=== PATIENT | female | born 1940 | race Caucasian/White ===

== ENCOUNTER → 2023-09-06 10:26 | Outpatient (REF) | payer OTHER, SELFPAY | LOC: RAD 10:26 | PROVIDERS: ATTENDING PHYSICIAN Internal Medicine | DX: R68.81 Early satiety (principal) | CPT/HCPCS: 74246 ==

== ENCOUNTER → 2023-12-27 13:58 | Outpatient (REF) | payer OTHER, SELFPAY | LOC: HWRAD 13:58 | PROVIDERS: ATTENDING PHYSICIAN Surgery; FAMILY PHYSICIAN Internal Medicine | DX: K43.9 Ventral hernia without obstruction or gangrene (principal) | CPT/HCPCS: 74177; Q9967 ==

== ENCOUNTER 2024-01-04 20:28 | Inpatient (IN) | payer OTHER, SELFPAY ==
[2024-01-04 17:08] VITALS: BP 140/79
--- NOTE | 2024-01-04 18:41 | ED.GENMED ---
History of Present Illness
General
Chief Complaint: Breathing Problem
Source: patient and family
Exam Limitations: none
Time Seen by Provider: 01/04/24 18:18
Nursing documentation reviewed up to this point in time: agreed with
History of Present Illness
History of Present Illness:
Patient with history of COPD, presents to ED secondary to worsening shortness of breath with intermittent cough over the past 1 week. Patient at the recommendation of her primary care physician performed home test for COVID-19 4 days ago, which was
positive. Patient was started on Paxlovid with ongoing symptoms 2 days ago. Today, when she checked her pulse ox at home with shortness of breath, it was noted to be in low 80s. At that time, after discussion with her primary care physician,
decision was made to have the patient evaluated in ED. Patient also reports decreased appetite. Denies vomiting or diarrhea. Denies sick contact. Denies recent travel. Denies dizziness. Denies headache.
Past History
Past History
ED Past Medical History: COPD, GERD, HTN and Other (TIA, )
ED Past Surgical History: Appendectomy, (X 3), Orthopedic (L3-L5 back surgery right and left side), Urological (Bladder lift) and Other (Mastroidectomy)
Social History
Tobacco: Non-smoker
Alcohol: None
Personal:
Living: with family
Employment: Employed
Review of Systems
Review of Systems
Allergies reviewed?: Yes
All Other Systems: ROS reviewed and negative except as documented in HPI and ROS
Constitutional: Reports no symptoms; Denies fever or chills
EENT: Reports no symptoms
Respiratory: Reports cough and trouble breathing
Cardiac: Reports no symptoms
ABD/GI: Reports no symptoms
Musculoskeletal: Reports no symptoms
Skin: Reports no symptoms
Neurological: Reports no symptoms
Phy Exam
Physical Exam
Physical Exam:
Physical Exam
General: mild distress, not acutely ill. afebrile
Head: nc/at. eomi
Neck: supple. no meningeal signs.
Heart: s1/s2 regular rate and rhythm, no murmur. equal radial pulses.
Lungs: mild respiratory distress. diminished breath sounds bilaterally with rhonchi
Abdomen: normal bowel sounds. not tender.
Neuro: alert and oriented. no focal neurological deficits
Skin: no rash
Psychiatric: well kept. interactive and cooperative
Extremities: no edema. no calf tenderness.
Scores
Heart Failure Risk
Heart Failure Risk Score: Not Applicable
Course
Orders/Labs/Results
Orders:
Orders
01/04/24 Dinner
Regular
01/04/24 18:35
CR Chest Portable - 1 View Urgent
Comment:
Reason For Exam: sob/hypoxia
Reason Study Needs to be Portable: Patient Unstable
01/04/24 18:38
0.9% Sodium Chloride 500 ml [Nss] 500 ml IV BOLUS
Dexamethasone Sod Phosphate [Decadron] 6 mg IV NOW STA
01/04/24 19:12
COVID-19 Antigen Urgent
Source: Nasal Swab
Complete Blood Count/With Diff Urgent
Comprehensive Metabolic Panel Urgent
Magnesium Urgent
01/04/24 19:54
Albuterol [ProAIR HFA INHALER] 2 puff INH R NOW STA
01/04/24 20:14
Admit/Transfer Patient As Directed
Co-Sign Provider:
Level of Care: Inpatient admission
Assign to:: Medical/Surgical
Physician / Group: james
Diagnosis: covid,copd exacerbation
Reason for Hospitalization: covid, copd exacerbation
Expected length of stay greater than two midnights?: Yes
ELOS- Estimated Length of Stay in days: 2
I certify the patient meets the requirements for IP care: Yes
Code Status As Directed
Resuscitation Status: Do not resuscitate
Reached after discussion with pt or family/Healthcare POA: Yes
PRN Pain Medication Management As Directed
May give lesser potent ordered pain med per pt: Yes
preference::
Protocol:: Medication orders for pain may be administered in a
manner that supports deferring to patient preference
when the pt is:
- Requesting an ordered lesser potent pain medication.
Least to most potent pain medications are defined
as: acetaminophen < NSAID < tramadol < opioids
(morphine, oxycodone, hydromorphone).
- Requesting a lesser dose of the same medication IF
ORDERED.
- Requesting a less intrusive route of administration
if both routes are prescribed by the provider (PO <
IV).
01/04/24 20:15
DNR Bracelet Application ONCE
01/04/24 21:13
Ibuprofen [Motrin] 200 mg PO DAILYPRN PRN
Ondansetron Injectable [Zofran] 4 mg IV Q6HPRN PRN
01/04/24 21:13
Activity As Directed
Activity Level: As Tolerated
Vital Signs As Directed
Frequency: Per unit guidelines
DX Deep Vein Thrombosis Video Routine
01/05/24 06:00
Complete Blood Count/With Diff IN AM
Comprehensive Metabolic Panel IN AM
01/05/24 08:00
Albuterol [ProAIR HFA INHALER] 2 puff INH R QID
Ascorbic Acid [Vitamin C] 500 mg PO DAILY
Aspirin 325 mg PO DAILY
Calcium Polycarbophil [Fibercon] 625 mg PO DAILY
Dexamethasone [Decadron] 6 mg PO DAILY
Heparin 5,000 units SC Q12
Losartan [Cozaar] 50 mg PO DAILY
Metoprolol Xl [Toprol Xl] 50 mg PO DAILY
Nirmatrelvir/Ritonavir [Paxlovid 2X150 mg-100 mg Dose Pack] DOSE dose PO BID
Pantoprazole [Protonix] 40 mg PO DAILY
Spironolactone [Aldactone] 50 mg PO DAILY
Tiotropium [place] 2.5 Mcg [Spiriva Respimat 2.5 Mcg] 2 puff INH R DAILY
Zinc Sulfate 220 mg PO DAILY
coenzyme Q10 [Co Q-10] 100 mg PO DAILY
fluticasone propionate 1 spray NASAL DAILY
01/05/24 20:00
Olodaterol HCl [Striverdi Respimat] 2 puff INH R QPM
Abnormal Lab Results
01/04/24
19:12
RBC 4.14 L 10^6/uL
(4.20-5.40)
Hct 34.6 L %
(37.0-47.0)
Abs Immat Gran (auto) 0.1 H 10^3/uL
(0-0.05)
Absolute Monos (auto) 1.1 H 10^3/uL
(0.1-0.6)
Lymphocytes % 15.5 L %
(20.5-51.1)
Monocytes % 11.8 H %
(1.7-9.3)
Sodium 126 L mmol/L
(135-145)
Chloride 91 L mmol/L
(98-107)
BUN 21 H mg/dl
(7-17)
Glucose 103 H mg/dl
(70-99)
01/04/24 19:12
01/04/24 19:12
Vital Signs
Initial and Last Documented VS:
Initial Vital Signs
Temp Pulse Resp BP Pulse Ox
97.5 F 97 22 140/79 96
01/04/24 17:08 01/04/24 17:08 01/04/24 17:08 01/04/24 17:08 01/04/24 17:08
Last Documented Vital Signs
Temp Pulse Resp BP Pulse Ox
97.5 F 77 18 119/74 96
01/04/24 21:26 01/04/24 21:26 01/04/24 21:26 01/04/24 21:26 01/04/24 21:26
MDM/Problems Addressed
MDM/Problems Addressed:
History and exam consistent with likely COPD exacerbation secondary to recent COVID-19 infection. In light of patient's hypoxia noted at home, along with worsening symptoms despite being treated with Paxlovid, patient will be admitted for further
evaluation treatment, including IV steroids and breathing treatment. No evidence of superimposed pneumonia infection noted on chest x-ray.
*Critical Care Note
Total Time (30-74mins, 75-104mins- exclusive of procedures): Not Applicable
ED Attending Note
-
Portions of this chart may have been created with voice recognition software.� Occasional wrong word or��sound alike� substitutions may have occurred due to the inherent limitations of voice recognition software.
Discharge Plan
Departure
Patient Disposition: Admit
Date of Disposition: 01/04/24
Time of Disposition: 19:53
Admit to: Telemetry
Presentation/result/management discussed w/ accepting MD/DO: Hospitalist
Discharge Problem:
COPD exacerbation, COVID-19, Hyponatremia
Interventions
Interventions:
*Risk Screen - Suicide Last Done: 01/04/24 17:08
*General Assessment Last Done: 01/04/24 17:08
*Neglect/Abuse Screening Last Done: 01/04/24 17:08
ED- Fall Risk Assessment Last Done: 01/04/24 18:52
*ED COVID-19 Vaccine History Last Done: 01/04/24 17:08
*Nursing Disposition Last Done: 01/04/24 21:56
ED- Cardiac Assessment Last Done: 01/04/24 18:52
ED- Pulmonary Assessment Last Done: 01/04/24 18:52
Discharge Date and Time
Discharge Date/Time: 01/04/24 21:57
[2024-01-04 18:54] VITALS: BMI 24.6
[2024-01-04 18:58] VITALS: BP 124/69
[2024-01-04] MEDS: DECADRON 6 MG IV (19:17)
[2024-01-04] MEDS: NSS 500 IV (19:17)
[2024-01-04 19:30] LABS: % Basophils 0.5 % (0-2); % Immature Granulocytes 0.5 % (0-0.5); % Lymphocytes 15.5 % (20.5-51.1); % Monocytes 11.8 % (1.7-9.3); % Neutrophils 68.7 % (42.2-75.2); Absolute Basophils 0.1 10^3/uL (0-0.2); Absolute Eosinophils 0.3 10^3/uL (0-0.7); Absolute Immature Granulocytes 0.1 10^3/uL (0-0.05); Absolute Lymphocytes 1.5 10^3/uL (1.2-3.4); Absolute Monocytes 1.1 10^3/uL (0.1-0.6); Absolute Neutrophils 6.4 10^3/uL (1.4-6.5); Hematocrit 34.6 % (37.0-47.0); Hemoglobin 12.4 g/dL (12.0-16.0); Mean Corp Hgb Conc. 35.8 g/dL (33.0-37.0); Mean Corpuscular Volume 83.6 fL (81.0-99.0); Mean Platelet Volume 9.6 fL (7.4-10.4); Nucleated Red Blood Cells % 0 %; Platelet Count 328 10^3/uL (130-400); Red Blood Cell Count 4.14 10^6/uL (4.20-5.40); Red Cell Dist. Width 12.7 % (11.5-14.5); White Blood Cell Count 9.3 10^3/uL (4.8-10.8)
[2024-01-04 19:44] LABS: COVID-19 Antigen Negative (Negative)
[2024-01-04 19:57] LABS: ALT (SGPT) 15 U/L (0-35); AST (SGOT) 27 U/L (14-36); Albumin 4.5 g/dl (3.5-5.0); Alkaline Phosphatase 92 U/L (38-126); Blood Urea Nitrogen 21 mg/dl (7-17); Calcium 9.3 mg/dl (8.4-10.2); Carbon Dioxide 25 mmol/L (22-30); Chloride 91 mmol/L (98-107); Estimated Creatinine Clearance 32 ml/min; Glucose 103 mg/dl (70-99); Potassium 4.5 mmol/L (3.5-5.1); Sodium 126 mmol/L (135-145); Total Bilirubin 0.9 mg/dl (0.2-1.3); Total Protein 7.3 g/dl (6.3-8.2); eGFR > 60.00
[2024-01-04 20:00] VITALS: BP 101/73
--- NOTE | 2024-01-04 20:22 | HPS.HSE ---
Family Physician
-
Family Physician: Rod Young
Chief Complaint
-
shortness of breath
History of Present Illness
83-year-old female past medical history of COPD, GERD, hypertension, TIA presenting to the emergency room for worsening shortness of breath and intermittent cough over the 4 days associated with nasal congestion and fever. Patient performed home
test for COVID 4 days ago which was positive. She was started on Paxlovid 2 days ago. Today when she checked her pulse ox at home she was in the low 80s. She spoke with her primary care physician who recommend she come to the emergency room. She
has chronic cough which is at baseline. She has decreased appetite and nausea but denies vomiting. Denies sick contacts. She had diarrhea last week which is since resolved. Denies recent travel. Denies dizziness. Denies headache. Denies chest
pain. Fever has since resolved.
She denies smoking or alcohol use.
Medical History
Past Medical History
Past Medical History: Reports Other ( COPD, GERD, hypertension, TIA )
Past Surgical History: Reports Other ( Appendectomy, (X 3), Orthopedic (L3-L5 back surgery right and left side), Urological (Bladder lift) and Other (Mastroidectomy))
Social History
Tobacco: Non-smoker
Alcohol: None
Drug: None
Family History
Family History: Not pertinent
Allergies / Home Medications
Allergies reflects when Allergies were last updated in [facility].
Home Medications with original date entered in [facility]
Allergy/Medication List:
Allergies
Allergy/AdvReac Type Severity Reaction Status Date / Time
oxycodone HCl [From Percocet] Allergy Mild Unknown Verified 01/04/24 17:47
midazolam [From Versed] Allergy Unknown Verified 01/04/24 17:47
Home Medications
Focus 1 tab PO DAILY 01/04/24
albuterol sulfate 90 mcg/actuation aerosol inhaler 2 inh inhalation R Q4HPRN PRN sob/wheezing 01/04/24
ascorbic acid (vitamin C) 500 mg tablet (Vitamin C) 500 mg PO DAILY 01/04/24
aspirin 325 mg tablet 325 mg PO DAILY 01/04/24
calcium polycarbophil 625 mg tablet (FiberCon) 625 mg PO DAILY 01/04/24
coenzyme Q10 100 mg capsule (Co Q-10) 100 mg PO DAILY 01/04/24
esomeprazole magnesium 40 mg capsule,delayed release 40 mg PO DAILY 01/04/24
fluticasone propionate 50 mcg/actuation nasal spray,suspension 1 spray intranasal DAILY 01/04/24
ibuprofen 200 mg tablet (Advil) 200 mg PO DAILYPRN PRN mild pain 01/04/24
losartan 50 mg tablet 50 mg PO DAILY 01/04/24
metoprolol succinate 50 mg tablet,extended release 24 hr 50 mg PO DAILY 01/04/24
nirmatrelvir 300 mg (150 mg x2)-ritonavir 100 mg tablet,dose pack (Paxlovid) 3 ea PO BID 01/04/24
salmeterol 50 mcg/dose blister powder for inhalation (Serevent Diskus) 1 inh inhalation R QPM 01/04/24
spironolactone 50 mg tablet 50 mg PO DAILY 01/04/24
tiotropium bromide 18 mcg capsule with inhalation device (Spiriva with HandiHaler) 18 mcg inhalation R DAILY 01/04/24
zinc sulfate 50 mg zinc (220 mg) tablet 50 mg PO DAILY 01/04/24
Review of Systems
-
History Source: Patient
A 12 point ROS was completed and negative except as noted: Yes
Constitutional: Reports No Symptoms
EENT: Reports No Symptoms
Respiratory: Reports See HPI
Cardiac: Reports No Symptoms
Abdomen/GI: Reports See HPI
: Reports No Symptoms
Musculoskeletal: Reports No Symptoms
Skin: Reports No Symptoms
Neurological: Reports No Symptoms
Endocrine: Reports No Symptoms
Hematologic/Lymphatic: Reports No Symptoms
Psych: Reports No Symptoms
Physical Exam
Vital Signs
Vital Signs
Temp Pulse Resp BP Pulse Ox
97.5 F 78 26 124/69 94
01/04/24 17:08 01/04/24 19:45 01/04/24 19:45 01/04/24 18:58 01/04/24 19:30
Physical Exam
General: Well Developed, Well Nourished and No Apparent Distress
HEENT: NormoCephalic, Moist mucous membranes and Atraumatic
Respiratory: Rhonchi
Cardiac: S1/S2 and Regular Rhythm; No Murmur or Rub
GI: Soft, Non Tender, Non Distended and Normal Bowel Sounds; No Organomegaly
Rectal: Deferred by Provider
Musculoskeletal: No Clubbing, No Cyanosis and No Edema
Skin: No Rash
Neuro: Nonfocal/grossly intact
Laboratory Results
-
01/04/24 19:12
01/04/24 19:12
Laboratory Results
Total Bilirubin 0.9 mg/dl (0.2-1.3) 01/04/24 19:12
AST 27 U/L (14-36) 01/04/24 19:12
ALT 15 U/L (0-35) 01/04/24 19:12
Alkaline Phosphatase 92 U/L (38-126) 01/04/24 19:12
Data Reviewed
-
Lab Data: Labs Reviewed by me
Old Records: Reviewed
Impression/Plan
-
IMPRESSION:
PLAN:
# COVID infection
# Mild COPD exacerbation
-Slight bilateral rhonchi on examination
-COVID-negative here
-Chest x-ray unremarkable
-Dexamethasone 6 mg daily
-Continue Paxilovid
-DuoNebs every 6 hours
-Continue Spiriva, salmeterol
-Continue zinc
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
-Sodium of 126 from 128 previously
-Monitor with IV fluids
GERD
-Continue esomeprazole, Pepcid
Essential hypertension
-Continue losartan, metoprolol, spironolactone
History of TIA
-Continue aspirin
Anxiety/depression
DNR/DNI
DVT prophylaxis�heparin
Regular diet
[2024-01-04] MEDS: ProAIR HFA INHALER 2 PUFF INH (20:44)
[2024-01-04 21:26] VITALS: BP 119/74
--- NOTE | 2024-01-04 21:34 | PTCARENOTE ---
Patient arrived to 329 from ED via stretcher, ambulated from stretcher to bed with assist of one person. Patient alert and oriented, moving about the room at this time. Baseline patient uses cane to ambulate. Patient offers no complaints at this
time, satting well on room air. Call collins within reach, patient demonstrates appropriate use at this time. Will continue to monitor.
[2024-01-04 21:50] VITALS: BMI 25.1
[2024-01-04 23:39] VITALS: BP 113/66
--- NOTE | 2024-01-05 02:07 | PTCARENOTE ---
Patient is upset that she missed a dose of Paxlovid this evening as it was never ordered or given since her admission from the ED. Patient expressing frustration that it was not given and that she feels she needs to speak with her physician in the
morning regarding the missing dose. Call collins in reach, will monitor.
[2024-01-05 07:00] VITALS: BP 124/71
[2024-01-05] MEDS: ProAIR HFA INHALER 2 PUFF INH ×2 (07:35→11:11)
[2024-01-05] MEDS: SPIRIVA RESPIMAT 2.5 MCG 2 PUFF INH (07:35)
[2024-01-05] MEDS: FIBERCON 625 MG PO (07:55)
[2024-01-05] MEDS: DECADRON 6 MG PO (07:55)
[2024-01-05] MEDS: VITAMIN C 500 MG PO (07:55)
[2024-01-05] MEDS: ZINC SULFATE 220 MG PO (07:55)
[2024-01-05] MEDS: PROTONIX 40 MG PO (07:55)
[2024-01-05] MEDS: HEPARIN 5000 UNITS SC (07:56)
[2024-01-05] MEDS: ALDACTONE 50 MG PO (07:56)
[2024-01-05] MEDS: TOPROL XL 50 MG PO (07:56)
[2024-01-05] MEDS: COZAAR 50 MG PO (07:56)
[2024-01-05] MEDS: ASPIRIN 325 MG PO (07:56)
[2024-01-05] MEDS: PAXLOVID 150-100 MG DOSE PACK 1 DOSE PO (08:01)
[2024-01-05 08:10] LABS: % Basophils 0.1 % (0-2); % Lymphocytes 12.4 % (20.5-51.1); % Monocytes 2.1 % (1.7-9.3); % Neutrophils 84.4 % (42.2-75.2); Absolute Immature Granulocytes 0.1 10^3/uL (0-0.05); Absolute Lymphocytes 0.9 10^3/uL (1.2-3.4); Absolute Monocytes 0.2 10^3/uL (0.1-0.6); Absolute Neutrophils 6.1 10^3/uL (1.4-6.5); Hematocrit 36.2 % (37.0-47.0); Hemoglobin 12.9 g/dL (12.0-16.0); Mean Corp Hgb Conc. 35.6 g/dL (33.0-37.0); Mean Corpuscular Hgb 30.9 pg (27.0-31.0); Mean Corpuscular Volume 86.6 fL (81.0-99.0); Nucleated Red Blood Cells % 0 %; Platelet Count 335 10^3/uL (130-400); Red Blood Cell Count 4.18 10^6/uL (4.20-5.40); Red Cell Dist. Width 12.5 % (11.5-14.5); White Blood Cell Count 7.2 10^3/uL (4.8-10.8)
[2024-01-05 08:43] LABS: ALT (SGPT) 16 U/L (0-35); AST (SGOT) 26 U/L (14-36); Albumin 4.6 g/dl (3.5-5.0); Alkaline Phosphatase 87 U/L (38-126); Blood Urea Nitrogen 19 mg/dl (7-17); Calcium 9.5 mg/dl (8.4-10.2); Carbon Dioxide 25 mmol/L (22-30); Chloride 93 mmol/L (98-107); Estimated Creatinine Clearance 38 ml/min; Glucose 170 mg/dl (70-99); Potassium 4.7 mmol/L (3.5-5.1); Sodium 128 mmol/L (135-145); Total Bilirubin 0.6 mg/dl (0.2-1.3); Total Protein 7.2 g/dl (6.3-8.2); eGFR > 60.00
--- NOTE | 2024-01-05 12:17 | W.PN.HOSP.TC ---
Today's Communication/Plan
-
d/c home
Assessment / Plan
Assessment / Plan
1. COVID 19 Viral infection
-Lung exam clear today no further indication of steroids
-Chest x-ray reviewed
-COVID negative. Patient to finish Paxlovid course
-Continue home inhaler therapy
-No further signs of exertional hypoxia/dyspnea. Patient cleared to be discharged today to home.
2. 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
-close to baseline
3. GERD
-Continue esomeprazole, Pepcid
4. Essential hypertension
-Continue losartan, metoprolol, spironolactone
5. History of TIA
-Continue aspirin
6. Anxiety/depression
DNR/DNI
DVT prophylaxis�heparin
More than 30 minutes spent in discharge including
Final examination of the patient
Summarizing hospital stay
Instructions for continuing care to all relevant caregivers
Preparation of discharge records, prescriptions, and referral forms
Total time spent (in minutes): 38 mins
Anticipated Discharge: Today
Subjective/Interval History
-
Date of Service: January 05, 2024
No shortness of breath/hypoxia
No other acute issues overnight
Objective Data
-
Labs:
Laboratory Results
01/05/24
07:01
WBC 7.2
Hgb 12.9
Hct 36.2 L
Plt Count 335
Sodium 128 L
Potassium 4.7
Chloride 93 L
Carbon Dioxide 25
BUN 19 H
Creatinine 0.8
Glucose 170 H
Calcium 9.5
Total Bilirubin 0.6
AST 26
ALT 16
Alkaline Phosphatase 87
Vital Signs:
Vital Signs
Temp Pulse Resp BP Pulse Ox
98.4 F 77 18 124/71 97
01/05/24 07:00 01/05/24 07:56 01/05/24 07:43 01/05/24 07:56 01/05/24 07:43
I&O
01/04/24 01/05/24 01/06/24
06:59 06:59 06:59
Intake Total 1350 / 1350
Balance 1350 / 1350
Review of Systems
-
Respiratory: Reports No Symptoms
Cardiac: Reports No Symptoms
Abdomen/GI: Reports No Symptoms
Physical Exam
-
General: No Apparent Distress and Comfortable
HEENT: Negative Oxygen
Respiratory: Clear to Auscultation
Cardiac: Regular Rhythm and S1/S2; Negative Murmur or Rub
GI: Soft, Nontender, Nondistended and Normal Bowel Sounds
Musculoskeletal: No Edema
Neuro: Awake, Alert, Oriented, No Motor Deficits and Nonfocal/Grossly Intact
Psych: Calm
--- NOTE | 2024-01-05 13:50 | CM ---
IA completed with pt at bedside.
Pt is an 83yr old male admitted with COVID/COPD Exacerbation
At baseline, pt lives with her in a 1 level home and 1 step to enter with a rail.
Pt is indep and driving. Pt has equipment, but does use it. Equipment in home includes cane, RW, Shower chair with bars, and a raised toilet seat.
Pt has used [facility] prior and has had no SNF use.
Pt will have transportation for dc
PCP; Rod Young
Pharm; [facility]
PLAN; dc to home with no needs
--- NOTE | 2024-01-06 14:54 | W.DCSUMMARY ---
Discharge Summary
Discharge Data
Date of Admission: 01/04/24
Date of Discharge: 01/05/24
-
Pending Results: No
Hospital Course
Discharging Physician : Dr Manuel Lux
Disposition : To home
Primary care physician : Dr Tomas Young
Principal Discharge diagnosis :
COVID-19 viral infection
Chronic Discharge diagnosis :
Chronic hyponatremia
Gastroesophageal reflux disease
Essential hypertension
History of transient ischemic attack
Anxiety/depression
Hospital Course :
Patient is 83-year-old female with admission past medical history came to ER for having new onset of shortness of breath and intermittent cough for 4 days. Patient checked herself for COVID at home and was positive. Patient was provided Paxlovid
therapy and had finished 2 days of course. On the day of ER visit patient was having persistent breathing issues and came to ER and was noted to be borderline hypoxic. Patient was admitted to hospital for further monitoring. Chest x-ray was done
which did not show any overt pneumonia. Lung exam was clear and although at admission there was concern of COPD flare of this was less likely. Patient did get dose of steroid in ER and nebulizer therapy. Following day after resolution of symptoms
patient was discharged home with recommendation to finish course of Paxlovid therapy provided by PCP.
Important imaging findings :
None
Procedure findings :
None
Discharge Plan
-
Patient Disposition: Home (Routine Discharge)
Discharge Diagnosis/Procedures: COVID 19 Viral infection
Condition: Fair
Diet: Regular
Activity: As tolerated
Driving Restrictions: No driving for 24 hours
Bathing Restrictions: OK to Shower
Activity Restrictions/Additional Instructions:
Finish remaining course of Paxlovid provided by your Primary care physician.
Referrals:
Rod Young MD [Family Provider] - in one week
Prescriptions:
Continued
losartan 50 mg tablet
50 mg PO DAILY
aspirin 325 mg Tablet
325 mg PO DAILY
metoprolol succinate 50 mg tablet extended release 24 hr
50 mg PO DAILY
esomeprazole magnesium 40 mg capsule,delayed release(DR/EC)
40 mg PO DAILY
Serevent Diskus 50 mcg/dose blister with device
1 inh INHALATION R QPM
spironolactone 50 mg tablet
50 mg PO DAILY
tiotropium bromide [Spiriva with HandiHaler] 18 mcg capsule, w/inhalation device
18 mcg INHALATION R DAILY
Paxlovid 300 mg (150 mg x 2)-100 mg tablets,dose pack
3 ea PO BID
zinc sulfate 50 mg zinc (220 mg) Tablet
50 mg PO DAILY
ascorbic acid (vitamin C) [Vitamin C] 500 mg Tablet
500 mg PO DAILY
calcium polycarbophil [FiberCon] 625 mg Tablet
625 mg PO DAILY
ibuprofen [Advil] 200 mg Tablet
200 mg PO DAILYPRN PRN (Reason: mild pain)
albuterol sulfate 90 mcg/actuation Hfa Aerosol Inhaler
2 inh INHALATION R Q4HPRN PRN (Reason: sob/wheezing)
fluticasone propionate 50 mcg/actuation [place],Suspension
1 spray INTRANASAL DAILY
coenzyme Q10 [Co Q-10] 100 mg Capsule
100 mg PO DAILY
Focus
1 tab PO DAILY
Discharge Orders:
Discharge Patient (As Directed); Ordered 01/05/24
Ordered By: Manuel Lux
Discharge Date and Time
Discharge Date/Time: 01/05/24 13:58
Print Language: BELIZEAN
== END 2024-01-05 13:58 | disposition home or self-care (01) | DRG 178 ==
LOC: 3 WEST ACU 20:28
PROVIDERS: ADMITTING PHYSICIAN Hospitalist; ATTENDING PHYSICIAN Hospitalist; EMERGENCY PHYSICIAN Emergency Medicine; FAMILY PHYSICIAN Internal Medicine
DX: U07.1 COVID-19 (principal); E87.1 Hypo-osmolality and hyponatremia; J44.1 Chronic obstructive pulmonary disease with (acute) exacerbation; I10 Essential (primary) hypertension; F32.A Depression, unspecified; R09.02 Hypoxemia; K21.9 Gastro-esophageal reflux disease without esophagitis; F41.9 Anxiety disorder, unspecified; Z66 Do not resuscitate; R11.0 Nausea; Z79.82 Long term (current) use of aspirin; Z79.899 Other long term (current) drug therapy; Z86.73 Personal history of transient ischemic attack (TIA), and cerebral infarction without residual deficits; Z88.5 Allergy status to narcotic agent; Z88.8 Allergy status to other drugs, medicaments and biological substances; Z90.89 Acquired absence of other organs
CPT/HCPCS: 71045; 80053; 83735; 85025; 87811; 94640; 96361; 96374; 99285

== ENCOUNTER → 2024-03-26 10:16 | Outpatient (REF) | payer OTHER, SELFPAY | LOC: HWWDC 10:16 | PROVIDERS: ATTENDING PHYSICIAN Internal Medicine | DX: Z12.31 Encounter for screening mammogram for malignant neoplasm of breast (principal) | CPT/HCPCS: 77063; 77067 ==

== ENCOUNTER → 2024-08-18 07:53 | Outpatient (REF) | payer OTHER, SELFPAY | LOC: EMG 07:53 | PROVIDERS: ATTENDING PHYSICIAN Orthopaedic Surgery Hand Surgery; FAMILY PHYSICIAN Internal Medicine | DX: G56.03 Carpal tunnel syndrome, bilateral upper limbs (principal) | CPT/HCPCS: 95886; 95911 ==

== ENCOUNTER 2024-09-12 13:58 | Emergency (ER) | payer OTHER, SELFPAY ==
[2024-09-12 14:09] VITALS: BP 136/77
--- NOTE | 2024-09-12 14:51 | ED.MUSCINJ ---
Addendum entered and electronically signed by Prashanth Knowles PA-C 09/16/24 14:29:
Please note a splint was applied to the distal interphalangeal joint of the thumb held in a neutral position. Splint was a plastic 'Stack' splint.
Original Note:
HPI-Injury
General
Chief Complaint: Musculo-Skeletal Complaint
Source: patient
Time Seen by Provider: 09/12/24 14:29
History of Present Illness-Injury
Initial Injury comments:
84-year-old [id number] female presents complaining of left thumb pain starting today. She tripped and fell hitting her left thumb. She notes bruising and swelling to the distal portion. No other complaint
Past History
Past History
ED Past Medical History: COPD, GERD, HTN and Other (TIA, )
ED Past Surgical History: Appendectomy, (X 3), Orthopedic (L3-L5 back surgery right and left side), Urological (Bladder lift) and Other (Mastroidectomy)
Social History
Tobacco: Non-smoker
Alcohol: None
Personal:
Living: with family
Employment: Employed
Phy Exam
Physical Exam
Physical Exam:
General: Well-appearing female no acute distress
Musculoskeletal exam: Left thumb ecchymotic and swollen tender over the distal phalanx no deformity able to flex and extend at the DIP joint
Skin is intact but ecchymotic over the distal portion of the palm
Injury Course
Orders/Labs/Results
Orders:
Orders
09/12/24 14:13
Thumb/Finger(s) 2 View Lt [CR Finger(s)/thumb Min 2 Vw Lt] Urgent
Comment:
Reason For Exam: pain, bruising
Indicate Which Finger:: Thumb
MDM/Problems Addressed
Differential Diagnosis Includes:
Left thumb pain after trip and fall consider sprain versus fracture versus dislocation
I personally visualized x-rays of the left thumb which demonstrate nondisplaced fracture of the distal phalanx of the distal phalanx. Patient placed in a splint for comfort. Recommend follow-up with her orthopedic doctor. She follows with .
Nena
*Critical Care Note
Total Time (30-74mins, 75-104mins- exclusive of procedures): Not Applicable
ED Attending Note
-
Portions of this chart may have been created with voice recognition software.� Occasional wrong word or��sound alike� substitutions may have occurred due to the inherent limitations of voice recognition software.
Discharge Plan
Departure
Patient Disposition: Home (Routine Discharge)
Date of Disposition: 09/12/24
Time of Disposition: 14:52
Patient with high blood pressure during this ER visit?: No
Discharge Problem:
Fracture of thumb
Prescriptions:
No Action
losartan 50 mg tablet
50 mg PO DAILY
aspirin 325 mg Tablet
325 mg PO DAILY
metoprolol succinate 50 mg tablet extended release 24 hr
50 mg PO DAILY
esomeprazole magnesium 40 mg capsule,delayed release(DR/EC)
40 mg PO DAILY
Serevent Diskus 50 mcg/dose blister with device
1 inh INHALATION R QPM
spironolactone 50 mg tablet
50 mg PO DAILY
tiotropium bromide [Spiriva with HandiHaler] 18 mcg capsule, w/inhalation device
18 mcg INHALATION R DAILY
Paxlovid 300 mg (150 mg x 2)-100 mg tablets,dose pack
3 ea PO BID
zinc sulfate 50 mg zinc (220 mg) Tablet
50 mg PO DAILY
ascorbic acid (vitamin C) [Vitamin C] 500 mg Tablet
500 mg PO DAILY
calcium polycarbophil [FiberCon] 625 mg Tablet
625 mg PO DAILY
ibuprofen [Advil] 200 mg Tablet
200 mg PO DAILYPRN PRN (Reason: mild pain)
albuterol sulfate 90 mcg/actuation Hfa Aerosol Inhaler
2 inh INHALATION R Q4HPRN PRN (Reason: sob/wheezing)
fluticasone propionate 50 mcg/actuation [place],Suspension
1 spray INTRANASAL DAILY
coenzyme Q10 [Co Q-10] 100 mg Capsule
100 mg PO DAILY
Focus
1 tab PO DAILY
Referrals:
Antony Barrett MD [Active] -
Rod Young MD [Family Provider] -
Activity Restrictions/Additional Instructions:
Use splint as for comfort. You may take Tylenol for pain. Follow-up with your orthopedic doctor
Interventions
Interventions:
*Risk Screen - Suicide Last Done: 09/12/24 14:09
*General Assessment Last Done: 09/12/24 14:09
Discharge Date and Time
Print Language: JAPANESE
== END 2024-09-12 15:03 | disposition home or self-care (01) ==
LOC: EMR 13:58
PROVIDERS: EMERGENCY PHYSICIAN Emergency Medicine; FAMILY PHYSICIAN Internal Medicine
DX: S62.525A Nondisplaced fracture of distal phalanx of left thumb, initial encounter for closed fracture (principal); W01.0XXA Fall on same level from slipping, tripping and stumbling without subsequent striking against object, initial encounter
CPT/HCPCS: 99283; 29130; 73140

== ENCOUNTER → 2025-05-11 09:51 | Outpatient (REF) | payer OTHER, SELFPAY | LOC: EMG 09:51 | PROVIDERS: ATTENDING PHYSICIAN Orthopaedic Surgery Hand Surgery; FAMILY PHYSICIAN Internal Medicine | DX: M25.532 Pain in left wrist (principal); M25.531 Pain in right wrist; R20.0 Anesthesia of skin | CPT/HCPCS: 95886; 95911 ==